=== PATIENT | female | born 1965 | race Caucasian/White ===

== ENCOUNTER 2017-03-14 07:18 | Day surgery (SDC) | payer OTHER ==
[~2017-03-14] VITALS: Ht 154.9 cm; Wt 56.7 kg
[2017-03-14 08:11] VITALS: Ht 154.9 cm; Wt 56.7 kg
[2017-03-14] MEDS ORDERED: GEODON (08:14)
[2017-03-14] MEDS ORDERED: CONGENTIN (08:14)
[2017-03-14] MEDS ORDERED: ZOLOFT (08:14)
[2017-03-14 08:32] VITALS: BP 120/75; PULSE 64; RESP 24
--- NOTE | 2017-03-14 09:25 | OPPN ---
Date/Time of Note Date/Time of Note DATE: 03/14/17 TIME: 09:24 Operative Report Preoperative Diagnosis Screening Postoperative Diagnosis Internal hemorrhoids No colon neoplasm was identified Operation/Procedure Performed Colonoscopy Surgeon see signature line psychologist research assistant None Anesthesia: moderate sedation Estimated blood loss: none Transfusion Required none Specimen None Grafts/Implants none Complications none CAITLIN KHAN MD Mar 14, 2017 09:25
[2017-03-14] MEDS ORDERED: FENTAnyl 50 MCG/ML VIAL ONE (09:26)
[2017-03-14] MEDS ORDERED: MIDAZOLAM 1 MG/ML 2 ML INJ ONE ×2 (09:27)
[2017-03-14 09:46] VITALS: BP 118/84; PULSE 75; RESP 14
--- NOTE | 2017-03-15 04:43 | GILP ---
DATE OF PROCEDURE: NAME OF PROCEDURE: Colonoscopy. SURGEON: Caitlin Car MD PREOPERATIVE DIAGNOSIS: Screening colonoscopy. POSTOPERATIVE DIAGNOSES: 1. Colonoscopy all the way to the cecum. 2. Internal hemorrhoids. 3. No colon neoplasm was identified. INDICATION FOR THE PROCEDURE: Ms. Christina Sheehan is a 51-year-old female patient who was schedul ed for screening colonoscopy. The procedure and possible complications were well explained to the patient, the patient understood and consented to the procedure. DESCRIPTION OF PROCEDURE: Under the influence of fentanyl and Versed, the colonoscope was carefully introduced in the rectum. Under direct vision, it was advanced all the way to the cecum. FINDINGS: The patient had internal hemorrhoids. No colon neoplasm was identified. She tolerated the procedure very well and there was no complication from the procedure. At the end of the procedure, she was awake with stable vital signs and she was discharged home to the care of h er family. IMPRESSION: 1. Colonoscopy all the way to the cecum. 2. Internal hemorrhoids. 3. No colon neoplasm was identified. PLAN: Next screening colonoscopy in 10 years. Dictated By: CAITLIN BENSON/BERTIN Conf#: [id number] DID#: [id number]
== END 2017-03-14 09:50 | disposition home or self-care (01) ==
LOC: GIL 07:18
PROVIDERS: ATTEND Internal Medicine Gastroenterology
DX: Z12.11 Encounter for screening for malignant neoplasm of colon (principal); K64.8 Other hemorrhoids
CPT/HCPCS: 45378; J2250; J3010; Z7610